=== PATIENT | male | born 1990 | race Two or more races ===

== ENCOUNTER 2025-07-30 11:29 | Inpatient (IN) | payer MEDICAID ==
[~2025-07-30] VITALS: Ht 170.2 cm; Wt 103.4 kg
[2025-07-30 12:30] VITALS: BP 137/74; TEMP 98; O2SAT 98
[2025-07-30] MEDS ORDERED: REMEDY ESSENTIAL ZINC PASTE 113 GM TP PRN (12:45)
[2025-07-30] MEDS ORDERED: ONDANSETRON 4 MG/2 ML VIAL IV PRN (12:45)
[2025-07-30] MEDS ORDERED: ACETAMINOPHEN 325 MG TABLET PO PRN (12:45)
[2025-07-30] MEDS: IV LACTATED RINGERS SOLUTION 1,000 ML IV SCH (13:22)
[2025-07-30] MEDS: MORPHINE SULFATE 4 MG/1 ML DISP.SYRIN IV PRN (13:28)
[2025-07-30] MEDS ORDERED: PIPERACILLIN SODIUM/TAZOBACTAM 4.5 G in IV DEXTROSE 5% 50 ML IV SCH (14:00)
[2025-07-30] MEDS: PIPERACILLIN SODIUM/TAZOBACTAM 3.375 G in IV DEXTROSE 5% 100 ML IV SCH (14:04)
[2025-07-30 15:30] VITALS: BP 136/63; TEMP 99.8; O2SAT 98
[2025-07-30 19:00] VITALS: BP 126/70; TEMP 99.8; O2SAT 98
[2025-07-30] MEDS: ENOXAPARIN SODIUM 40 MG/0.4 ML DISP.SYRIN SQ SCH (21:00)
[2025-07-31 06:00] VITALS: BP 134/80; TEMP 98.7; O2SAT 98
[2025-07-31 06:12] LABS: PLATELET COUNT (AUTO) 182 K/uL (152-348); RED BLOOD CELL COUNT(AUTO) 4.54 MIL/uL (4.06-5.63); RED CELL DISTRIBUTION WIDTH 12.9 % (12.1-16.2); WHITE BLOOD COUNT (AUTO) 11.0 K/uL (3.6-10.2)
[2025-07-31 06:37] LABS: CREATININE 0.9 mg/dL (0.6-1.3); SODIUM SERUM 138.0 mmol/L (136-145); UREA NITROGEN, BLOOD 9.0 mg/dL (7-18)
[2025-07-31 11:06] VITALS: BP 143/66; TEMP 97.7; O2SAT 100
[2025-07-31 15:22] VITALS: BP 127/53; TEMP 97.6; O2SAT 97
[2025-08-01 04:00] VITALS: BP 130/71; TEMP 98.2; O2SAT 98
[2025-08-01 11:29] VITALS: BP 120/66; TEMP 98.2; O2SAT 98
[2025-08-01 20:00] VITALS: BP 130/77; TEMP 98.6; O2SAT 99
[2025-08-01] MEDS: MIRALAX 17 GM POWD.PACK PO SCH (20:25)
[2025-08-02 05:00] VITALS: BP 122/80; TEMP 98; O2SAT 99
[2025-08-02 11:06] VITALS: BP 139/76; TEMP 97.6; O2SAT 96
[2025-08-02] MEDS ORDERED: METR500T PO (11:32)
[2025-08-02] MEDS ORDERED: CIPR-262 PO (11:32)
== END 2025-08-02 15:10 | disposition home or self-care (01) | DRG 244 ==
LOC: MEDSURG3 11:29
PROVIDERS: ADMIT Nurse Practitioner Acute Care; ATTEND Nurse Practitioner Acute Care
DX: K57.20 Diverticulitis of large intestine with perforation and abscess without bleeding (principal); E87.20 Acidosis, unspecified; R17 Unspecified jaundice; Z83.3 Family history of diabetes mellitus; R60.9 Edema, unspecified
CPT/HCPCS: 36415; 83735; 84100; 85025; A4663; G0378; J1650; J2270; J2543; J7120